=== PATIENT | female | born 1965 | race Caucasian/White ===

== ENCOUNTER → 2017-07-10 | Outpatient (CLI) | payer BC ==
--- NOTE | 2017-07-10 18:07 | Diagnostic Imaging Report ---
INDICATION: Screening mammogram. COMPARISON: 09/18/2015. TECHNIQUE: Digital screening mammography was obtained three-dimensional tomosynthesis. The current study was also evaluated with a Computer Aided Detection (CAD) system. FINDINGS: Scattered fibroglandular densities are present. There is no mass or suspicious calcification. IMPRESSION: Stable screening mammogram. No malignancy. ACR BI-RADS Category 1: Negative. Result letter will be mailed to the patient. Note: At least 10% of breast cancer is not imaged by mammography. Dictated on workstation # [id number]
== END ==
LOC: RAD 09:26
PROVIDERS: ATTEND Family Medicine
DX: Z12.31 Encounter for screening mammogram for malignant neoplasm of breast (principal)
CPT/HCPCS: 77067

== ENCOUNTER → 2018-02-14 | Outpatient (CLI) | payer BC | LOC: WOUNDCARE 13:31 | PROVIDERS: ATTEND Surgery | DX: L97.511 Non-pressure chronic ulcer of other part of right foot limited to breakdown of skin (principal); G60.3 Idiopathic progressive neuropathy; M20.42 Other hammer toe(s) (acquired), left foot; M79.7 Fibromyalgia; D72.820 Lymphocytosis (symptomatic) | CPT/HCPCS: 97597 ==

== ENCOUNTER → 2018-02-21 | Outpatient (CLI) | payer BC | LOC: WOUNDCARE 12:58 | PROVIDERS: ATTEND Surgery | DX: L97.511 Non-pressure chronic ulcer of other part of right foot limited to breakdown of skin (principal); G60.3 Idiopathic progressive neuropathy; M20.42 Other hammer toe(s) (acquired), left foot; M79.7 Fibromyalgia; D72.820 Lymphocytosis (symptomatic) | CPT/HCPCS: 99212 ==

== ENCOUNTER → 2018-03-02 | Outpatient (CLI) | payer BC | LOC: WOUNDCARE 11:29 | PROVIDERS: ATTEND Surgery | DX: L97.511 Non-pressure chronic ulcer of other part of right foot limited to breakdown of skin (principal); G60.3 Idiopathic progressive neuropathy; M20.42 Other hammer toe(s) (acquired), left foot; M79.7 Fibromyalgia; D72.820 Lymphocytosis (symptomatic); H16.229 Keratoconjunctivitis sicca, not specified as Sjogren's, unspecified eye | CPT/HCPCS: 11042 ==

== ENCOUNTER → 2018-03-16 | Outpatient (CLI) | payer BC | LOC: WOUNDCARE 10:58 | PROVIDERS: ATTEND Nurse Practitioner | DX: L97.511 Non-pressure chronic ulcer of other part of right foot limited to breakdown of skin (principal); G60.3 Idiopathic progressive neuropathy; M20.42 Other hammer toe(s) (acquired), left foot; M79.7 Fibromyalgia; D72.820 Lymphocytosis (symptomatic) | CPT/HCPCS: 11042 ==

== ENCOUNTER → 2018-07-27 | Outpatient (CLI) | payer BC ==
--- NOTE | 2018-07-27 17:33 | Diagnostic Imaging Report ---
INDICATION: Routine screening. Comparison is made with prior mammogram from 07/10/2017 and 09/18/2015. 2-D and 3-D bilateral screening mammography was performed. The current study was also evaluated with a Computer Aided Detection (CAD) system. FINDINGS: Scattered fibroglandular densities are identified bilaterally. There are benign calcifications bilaterally. No dominant mass or malignant-appearing microcalcifications are seen. The axillae are unremarkable. IMPRESSION: No mammographic features suspicious for malignancy are identified. ACR BI-RADS Category 2: Benign findings. Result letter will be mailed to the patient. Note: At least 10% of breast cancer is not imaged by mammography. Dictated by: Dictated on workstation # [id number]
== END ==
LOC: RAD 13:42
PROVIDERS: ATTEND Family Medicine
DX: Z12.31 Encounter for screening mammogram for malignant neoplasm of breast (principal)
CPT/HCPCS: 77067

== ENCOUNTER → 2020-08-12 | Outpatient (CLI) | payer BC, OTHER ==
--- NOTE | 2020-08-13 16:55 | Diagnostic Imaging Report ---
Digital mammogram. Bilateral screening This study was compared to the prior exams of 07/27/2018, 07/10/2017 and 09/18/2015. At this time there are no current complaints. The current study was also evaluated with a Computer Aided Detection (CAD) system. FINDINGS: The fibroglandular tissue in both breasts is heterogeneously dense. This does limit the sensitivity of this exam. Overall, there does not appear to have been any significant change when compared to the prior study. No primary or secondary sign of malignancy is noted. IMPRESSION: There is no radiographic evidence for malignancy. ACR BI-RADS Category 1: Negative. Result letter will be mailed to the patient. Note: At least 10% of breast cancer is not imaged by mammography. Dictated by: Dictated on workstation # [id number]
== END ==
LOC: RAD 15:09
PROVIDERS: ATTEND Nurse Practitioner Family
DX: Z12.31 Encounter for screening mammogram for malignant neoplasm of breast (principal)
CPT/HCPCS: 77063; 77067

== ENCOUNTER → 2023-06-13 | Outpatient (CLI) | payer OTHER ==
--- NOTE | 2023-06-16 10:46 | Diagnostic Imaging Report ---
Indication: Bilateral digital 2-D and 3-D screening with CAD. The current study was also evaluated with a Computer Aided Detection (CAD) system. COMPARISON: 06/10, 07/2020 and 07/2018 FINDINGS: density 2. Benign calcifications stable. No breast mass, spiculated lesion, architectural distortion or findings of malignancy. IMPRESSION: BI-RADS Category 1 ACR BI-RADS Category 1: Negative. Result letter will be mailed to the patient. Note: At least 10% of breast cancer is not imaged by mammography. Dictated by: Dictated on workstation # [id number]
== END ==
LOC: RAD 15:00
PROVIDERS: ATTEND Family Medicine
DX: Z12.31 Encounter for screening mammogram for malignant neoplasm of breast (principal)
CPT/HCPCS: 77063; 77067